=== PATIENT | female | born 1995 | race Caucasian/White ===

== ENCOUNTER 2019-06-04 18:43 | Emergency (ER) | payer BC ==
[~2019-06-04] VITALS: Ht 157.5 cm; Wt 57.6 kg
[2019-06-04 18:52] VITALS: Ht 157.5 cm; Wt 57.6 kg
[2019-06-04 20:15] LABS: BASOPHIL % 0.3 % (0-2); PLATELET COUNT 215 x10^3mcL (130-400); RED CELL DISTRIBUTION WIDTH 12.2 % (11.5-14.5)
[2019-06-04 20:35] LABS: CARBON DIOXIDE 28.8 mmol/L (21-32); CHLORIDE SERUM 106 mmol/L (98-107); CREATININE SERUM 0.9 mg/dL (0.6-1.0); GFR1 > 60 mL/min; GLUCOSE SERUM 102 mg/dL (74-106); POTASSIUM SERUM 3.7 mmol/L (3.5-5.1); SODIUM SERUM 143 mmol/L (136-145)
[2019-06-04 21:09] VITALS: BP 107/59
== END 2019-06-04 21:09 | disposition home or self-care (01) ==
LOC: ED 18:43
PROVIDERS: Emergency Medicine
DX: S61.210A Laceration without foreign body of right index finger without damage to nail, initial encounter (principal); R55 Syncope and collapse; Z88.0 Allergy status to penicillin; Z88.2 Allergy status to sulfonamides; Z88.1 Allergy status to other antibiotic agents; Z88.5 Allergy status to narcotic agent; W45.8XXA Other foreign body or object entering through skin, initial encounter; Y93.G1 Activity, food preparation and clean up; Y92.89 Other specified places as the place of occurrence of the external cause; Y99.8 Other external cause status
CPT/HCPCS: 36415; 82962; J2001; Q0092

== ENCOUNTER 2019-06-11 11:57 | Emergency (ER) | payer BC ==
[2019-06-11 12:52] VITALS: BP 106/61
== END 2019-06-11 12:52 | disposition home or self-care (01) ==
LOC: ED 11:57
DX: S61.210D Laceration without foreign body of right index finger without damage to nail, subsequent encounter (principal); Z88.0 Allergy status to penicillin; Z88.2 Allergy status to sulfonamides; Z88.1 Allergy status to other antibiotic agents; Z88.5 Allergy status to narcotic agent; X58.XXXD Exposure to other specified factors, subsequent encounter